=== PATIENT | female | born 2000 | race Caucasian/White ===

== ENCOUNTER 2023-04-13 13:31 | Emergency (ER) ==
[~2023-04-13] VITALS: Ht 149.9 cm; Wt 90.9 kg
== END 2023-04-13 15:36 | disposition home or self-care (01) ==
LOC: COL.ER 13:31
DX: B34.9 Viral infection, unspecified (principal); R05.9 Cough, unspecified

== ENCOUNTER 2023-07-25 19:58 | Emergency (ER) | payer MEDICAID ==
[~2023-07-25] VITALS: Ht 149.9 cm; Wt 100.0 kg
[2023-07-25 20:03] VITALS: TEMP 98.6
[2023-07-25 20:38] VITALS: BP 120/80; PULSE 30
== END 2023-07-25 20:38 | disposition home or self-care (01) ==
LOC: COL.ER 19:58
DX: H92.02 Otalgia, left ear (principal); J30.2 Other seasonal allergic rhinitis